=== PATIENT | male | born 1955 | race Caucasian/White ===

== ENCOUNTER 2022-12-16 09:49 | Outpatient (AMB) | payer MEDICARE, SELFPAY ==
--- NOTE | 2022-12-16 09:50 | A.OFFVIS_ITS ---
Intake Vital Signs 12/16/22 09:56 BP 122/72 Blood Pressure Location Lt radial Position Sitting Pulse 66 Pulse Source Pulse Oximeter Pulse Oximetry (%) 99 Oxygen Delivery Method Room Air Intake Visit Reasons: MAT Intake Intake Note: the patient presents for a mat intake Supervisor Felting Required: No Allergies No Known Allergies Allergy (Verified 12/23/22 09:36) Do you need a note to return to daycare/school/sports/work: No MAT Intake Nursing Intake Reason for visit: interested in medication for stimulant use disorder Are you currently using?: Yes What are you taking?: crack cocaine When was your last use?: 1.5 weeks ago How much?: $60 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, delivering newspapers What is your current relationship status?: (3rd , 19 years) Current PCP: Osbaldo Tolentino Date of last visit: 11/11/22 Referral Source: PCP Substance Abuse History Substance Abuse History (includes route, frequency and quantity): Cocaine (crack cocaine, INH, every other day x 5 years, last use 1.5 weeks ago) and Alcohol (1- 3 beers daily, 12 oz., last drink yesterday) Age of first use: Began using crack cocaine 5 years ago, states I started hanging out with the wrong people Social History Domestic Violence concerns: none Children: 41 yo, 38 yo Do you have a support system?: Current mode of transportation?: car Where are you currently residing?: own home, [place] LMP: n/a IV Drug Use Have you ever shared needles?: No Have you ever belonged to a needle exchange program?: No Do you buy needles at a pharmacy?: No Have you ever overdosed?: No Have you ever been hospitalized for an overdose?: No Was Naloxone administered?: No Recovery History Have you had any periods of recovery?: Yes What is your longest time in recovery?: 2 months without alcohol When was the last time you were in recovery?: 25 years ago Have you ever had inpatient treatment for your substance abuse disorder?: No Have you been in an inpatient detoxification program?: No Have you been in an inpatient Rehab/Penitentiary house?: No Have you been in an outpatient Methadone Maintenance program?: No Have you been in an outpatient Suboxone Maintenance program?: No Have you been in an AA/NA support program?: Yes (3 years ago x 3 months) Have you had a Recovery Support Lifeguard?: No Have you had Peer Support?: No Behavioral Health History Do you have a current provider? If so, who?: no diagnosis: none History of other addictive behavior: scratch tickets, has decreased to once per week History of inpatient psychiatric hospitalization? If so, how many? Most Recent? Where?: none History of self harming thoughts?: No History of homicidal or suicidal intentions?: No Medical Conditions Endocarditis?: No Skin Infection: No Seizure related to withdrawal or overdose: No Head or brain injury: No Hepatitis A (if yes, have you been treated?): No Hepatitis B (if yes, have you been treated?): No Hepatitis C (if yes, have you been treated?): No HIV (if yes, have you been treated?): No TB (if yes, have you been treated?): No Other: Yes (HTN (controlled), glaucoma, cataracts (surgery on R eye in 2 weeks)) Do you have any chronic pain conditions?: carpal tunnel Details: surgical hx: hernia operations (1988, 2009) tonisllectomy Legal History History of incarceration: No Currently on parole or probation: No Court mandated programs: No Pending court cases: No DCF involvement: No HPI MAT Intake HPI Details Patient presents for intake and evaluation of stimulant use (crack cocaine) Smoking every other day. Has not smoked in of about a week and a half, as his caught him and told him he needed to stop or their relationship would be over. Patient reporting significant cravings. Denies any sleep disturbance. Reporting some anxiety related mainly to thinking about using. Treatment history: He reports that he had been in treatment previously but does not recall what medication he had been prescribed. Denies any other substance use. Does report having 1 beer daily in the evenings. Denies any history of alcohol use disorder. Denies any history of overdose. RN note with additional details medications reviewed Review of Systems Const Reports as per HPI Physical Exam Vital Signs: Last Vital Signs Pulse 66 12/16/22 09:56 BP 122/72 12/16/22 09:56 Pulse Ox 99 12/16/22 09:56 Oxygen Delivery Method Room Air 12/16/22 09:56 Const General: cooperative and anxious Orientation/consciousness: patient oriented x3 Neuro General: patient oriented x3 Psych Appearance: well kempt Speech and movement: Clear speech present Affect: Anxious affect present Attitude: cooperative Thought process: Circumstantial thought process present Insight: Fair insight present (Psych) Results AMB 14 Panel Urine Drug Screen Urine Marijuana (THC) Negative Last Edit by Jeanette Tarango CMA on 12/16/22 10:16 Urine Cocaine Negative Last Edit by Jeanette Tarango CMA on 12/16/22 10:16 Urine Morphine Negative Last Edit by Jeanette Tarango CMA on 12/16/22 10:16 Urine Methamphetamine Negative Last Edit by Jeanette Tarango CMA on 12/16/22 10:16 Urine Amphetamine Negative Last Edit by Jeanette Tarango CMA on 12/16/22 10:1 6 Urine Benzodiazepine Negative Last Edit by Jeanette Tarango CMA on 12/16/22 10:16 Urine Barbiturates Negative Last Edit by Jeanette Tarango CMA on 12/16/22 10: 16 Urine Methadone Negative Last Edit by Jeanette Tarango CMA on 12/16/22 10:16 Urine Buprenorphine Negative Last Edit by Jeanette Tarango CMA on 12/16/22 10 :16 Urine Tricyclic Antidepressant Negative Last Edit by Jeanette Tarango CMA on 12/16/22 10:16 Urine MDMA Negative Last Edit by Jeanette Tarango CMA on 12/16/22 10:16 Urine Oxycodone Negative Last Edit by Jeanette Tarango CMA on 12/16/22 10:16 Urine Phencyclidine Negative Last Edit by Jeanette Tarango CMA on 12/16/22 10 :16 Urine Propoxyphene Negative Last Edit by Jeanette Tarango CMA on 12/16/22 10: 16 Results Reviewed Results Reviewed: Laboratory Last Values POC Urine Buprenorphine Negative 12/16/22 10:14 POC Urine Morphine Negative 12/16/22 10:14 POC Urine Oxycodone Negative 12/16/22 10:14 POC Urine Methadone Negative 12/16/22 10:14 POC Urine Propoxyphene Negative 12/16/22 10:14 POC Urine Barbiturates Negative 12/16/22 10:14 POC U Tricyclic Antidpr Negative 12/16/22 10:14 POC Urine PCP Negative 12/16/22 10:14 POC Ur Amphetamines Negative 12/16/22 10:14 POC Ur Methamphetamine Negative 12/16/22 10:14 POC Urine MDMA Negative 12/16/22 10:14 POC Ur Benzodiazepine Negative 12/16/22 10:14 POC Urine Cocaine Negative 12/16/22 10:14 POC Ur Marijuana (THC) Negative 12/16/22 10:14 Assessment & Plan Assessment & Plan (1) Cocaine use disorder: Code(s): F14.10 - Cocaine abuse, uncomplicated Plan: * risk reduction discussion * reviewed limited medication options for StUD, although some medications have shown some possible benefit to reduce cravings and overall use, including topomax. patient agreeable to trial * IOP referral sent to * follow up one week Orders: Orders AMB 14 Panel Urine Drug Screen 12/16/22 Z51.81 - Encounter for therapeutic drug level monitoring Medications: New topiramate 25 mg PO DAILY 14 caps 0RF naloxone 4 mg/actuation (Narcan) spray 1 dose into ONE nostril; alternate nostrils w each dose until help arrives 4 mg intranasal Q2M 2 ea 0RF Coding Level of Care Code New Pt Level 4 (89591) Diagnoses Cocaine use disorder F14.10
[2022-12-16 09:56] VITALS: BP 122/72; PULSE 66; O2SAT 99
== END 2022-12-16 10:53 | disposition home or self-care (01) ==
LOC: HO.HCC 09:49
PROVIDERS: PCP Internal Medicine; Visit Provider Nurse Practitioner Psychiatric/Mental Health
DX: F14.10 Cocaine abuse, uncomplicated (principal)
CPT/HCPCS: 99204

== ENCOUNTER → 2022-12-16 09:49 | Outpatient (BNVA) | payer MEDICARE, SELFPAY | PROVIDERS: PCP Internal Medicine; Visit Provider Nurse Practitioner Psychiatric/Mental Health | DX: Z51.81 Encounter for therapeutic drug level monitoring (principal); F14.10 Cocaine abuse, uncomplicated | CPT/HCPCS: 80305; 99202 ==

== ENCOUNTER 2022-12-23 09:30 | Outpatient (AMB) | payer MEDICARE, SELFPAY ==
--- NOTE | 2022-12-23 09:31 | MHC.OFFVIS ---
Intake Vital Signs 12/23/22 09:44 BP 128/74 Blood Pressure Location Lt radial Position Sitting Pulse 71 Pulse Source Pulse Oximeter Pulse Oximetry (%) 95 Oxygen Delivery Method Room Air Intake Visit Reasons: MAT Visit Intake Note: The patient presents for a mat visit Photo Finish Photographer Required: No Allergies No Known Allergies Allergy (Verified 12/23/22 09:36) Do you need a note to return to daycare/school/sports/work: No HPI MAT Visit HPI Details Patient presents for [facility] treatment follow up Started Topomax last week, has found it helpful with cravings Bright affect, encouraged by this Has not heard back from [facility] regarding IOP referral Review of Systems Const Reports as per HPI and Reports no additional complaints Physical Exam Vital Signs: Last Vital Signs Pulse 71 12/23/22 09:44 BP 128/74 12/23/22 09:44 Pulse Ox 95 12/23/22 09:44 Oxygen Delivery Method Room Air 12/23/22 09:44 Const General: cooperative, healthy appearing and no acute distress Nutritional Appearance: well nourished Psych Appearance: well kempt Speech and movement: Clear speech present Affect: normal affect Attitude: cooperative Thought process: Normal thought process present Thought content: Normal thought content present Insight: Fair insight present (Psych) Judgement: Good judgement present (Psych) Results AMB 14 Panel Urine Drug Screen Urine Marijuana (THC) Negative Last Edit by Jeanette Tarango CMA on 12/23/22 09:45 Urine Cocaine Negative Last Edit by Jeanette Tarango CMA on 12/23/22 09:45 Urine Morphine Negative Last Edit by Jeanette Tarango CMA on 12/23/22 09:45 Urine Methamphetamine Negative Last Edit by Jeanette Tarango CMA on 12/23/22 09:45 Urine Amphetamine Negative Last Edit by Jeanette Tarango CMA on 12/23/22 09:45 Urine Benzodiazepine Negative Last Edit by Jeanette Tarango CMA on 12/23/22 09:45 Urine Barbiturates Negative Last Edit by Jeanette Tarango CMA on 12/23/22 09:45 Urine Methadone Negative Last Edit by Jeanette Tarango CMA on 12/23/22 09:45 Urine Buprenorphine Negative Last Edit by Jeanette Tarango CMA on 12/23/22 09:45 Urine Tricyclic Antidepressant Negative Last Edit by Jeanette Tarango CMA on 12/23/22 09:45 Urine MDMA Negative Last Edit by Jeanette Tarango CMA on 12/23/22 09:45 Urine Oxycodone Negative Last Edit by Jeanette Tarango CMA on 12/23/22 09:45 Urine Phencyclidine Negative Last Edit by Jeanette Tarango CMA on 12/23/22 09:45 Urine Propoxyphene Negative Last Edit by Jeanette Tarango CMA on 12/23/22 09:45 Results Reviewed Results Reviewed: Laboratory Last Values POC Urine Buprenorphine Negative 12/23/22 09:36 POC Urine Morphine Negative 12/23/22 09:36 POC Urine Oxycodone Negative 12/23/22 09:36 POC Urine Methadone Negative 12/23/22 09:36 POC Urine Propoxyphene Negative 12/23/22 09:36 POC Urine Barbiturates Negative 12/23/22 09:36 POC U Tricyclic Antidpr Negative 12/23/22 09:36 POC Urine PCP Negative 12/23/22 09:36 POC Ur Amphetamines Negative 12/23/22 09:36 POC Ur Methamphetamine Negative 12/23/22 09:36 POC Urine MDMA Negative 12/23/22 09:36 POC Ur Benzodiazepine Negative 12/23/22 09:36 POC Urine Cocaine Negative 12/23/22 09:36 POC Ur Marijuana (THC) Negative 12/23/22 09:36 Assessment & Plan Assessment & Plan (1) Cocaine use disorder: Code(s): F14.10 - Cocaine abuse, uncomplicated Plan: topomax 25mg QD. risk reduction discussion referral to [facility] ([place] follow [place]) Orders: Orders AMB 14 Panel Urine Drug Screen 12/23/22 Z51.81 - Encounter for therapeutic drug level monitoring Coding Level of Care Code Est Pt Level 3 (06478) Diagnoses Cocaine use disorder F14.10
[2022-12-23 09:44] VITALS: BP 128/74; PULSE 71; O2SAT 95
== END 2022-12-23 10:45 | disposition home or self-care (01) ==
LOC: HO.HCC 09:30
PROVIDERS: PCP Internal Medicine; Visit Provider Nurse Practitioner Psychiatric/Mental Health
DX: F14.10 Cocaine abuse, uncomplicated (principal)
CPT/HCPCS: 99213

== ENCOUNTER → 2022-12-23 09:30 | Outpatient (BNVA) | payer MEDICARE, SELFPAY | PROVIDERS: PCP Internal Medicine; Visit Provider Nurse Practitioner Psychiatric/Mental Health | DX: F14.10 Cocaine abuse, uncomplicated (principal); Z51.81 Encounter for therapeutic drug level monitoring; Z79.899 Other long term (current) drug therapy | CPT/HCPCS: 80305; 99212 ==

== ENCOUNTER 2023-01-06 09:46 | Outpatient (AMB) | payer MEDICARE, SELFPAY ==
--- NOTE | 2023-01-06 09:53 | A.OFFVIS_ITS ---
Intake Vital Signs 01/06/23 10:06 BP 126/74 Blood Pressure Location Lt radial Position Sitting Pulse 51 Pulse Source Pulse Oximeter Pulse Oximetry (%) 99 Oxygen Delivery Method Room Air Intake Visit Reasons: MAT Visit Intake Note: the patient presents for a mat visit Music Composer Required: No Allergies No Known Allergies Allergy (Verified 01/06/23 09:54) Do you need a note to return to daycare/school/sports/work: No HPI MAT Visit HPI Details Patient presents for follow up of [facility] treatment Has been 2 months since his last use--reports feeling overall brighter and calmer. tolerating topomax and feels like it has helped with his cravings [facility] Review of Systems Const Reports as per HPI and Reports no additional complaints Physical Exam Vital Signs: Last Vital Signs Pulse 51 01/06/23 10:06 BP 126/74 01/06/23 10:06 Pulse Ox 99 01/06/23 10:06 Oxygen Delivery Method Room Air 01/06/23 10:06 Const General: cooperative, healthy appearing and no acute distress Nutritional Appearance: well nourished Psych Appearance: well kempt Speech and movement: Clear speech present Affect: normal affect Attitude: cooperative Thought process: Normal thought process present Thought content: Normal thought content present Insight: Fair insight present (Psych) Judgement: Good judgement present (Psych) Assessment & Plan Assessment & Plan (1) Cocaine use disorder: Code(s): F14.10 - Cocaine abuse, uncomplicated Plan: * Relapse prevention discussion * Continue Topamax at current dose * Follow-up 4 weeks--patient to follow-up with Sheree Osullivan for intake Coding Level of Care Code Est Pt Level 3 (19335) Diagnoses Cocaine use disorder F14.10
[2023-01-06 10:06] VITALS: BP 126/74; PULSE 51; O2SAT 99
== END 2023-01-06 10:45 | disposition home or self-care (01) ==
LOC: HO.HCC 09:46
PROVIDERS: PCP Internal Medicine; Visit Provider Nurse Practitioner Psychiatric/Mental Health
DX: F14.20 Cocaine dependence, uncomplicated (principal)
CPT/HCPCS: 99213

== ENCOUNTER → 2023-01-06 09:46 | Outpatient (BNVA) | payer MEDICARE, SELFPAY | PROVIDERS: PCP Internal Medicine; Visit Provider Nurse Practitioner Psychiatric/Mental Health | DX: F14.10 Cocaine abuse, uncomplicated (principal); Z51.81 Encounter for therapeutic drug level monitoring; Z79.899 Other long term (current) drug therapy | CPT/HCPCS: 99212 ==

== ENCOUNTER 2023-02-03 09:11 | Outpatient (AMB) | payer MEDICARE, SELFPAY ==
--- NOTE | 2023-02-03 09:12 | MHC.OFFVIS ---
Intake Vital Signs 02/03/23 09:23 BP 126/82 Blood Pressure Location Lt radial Position Sitting Pulse 57 Pulse Source Pulse Oximeter Pulse Oximetry (%) 99 Oxygen Delivery Method Room Air Intake Visit Reasons: MAT Visit Intake Note: The patient presents for a mat visit Supervisor Sheet Manufacturing Required: No Allergies No Known Allergies Allergy (Verified 02/03/23 09:15) Do you need a note to return to daycare/school/sports/work: No HPI MAT Visit HPI Details Patient presents for follow up Currently prescribed Topomax for stimulant use disorder Still no cocaine use-9 weeks Feeling positive--saw the person he usually buys from recently, but did not feel any compulsion to buy anything. No questions or concerns Review of Systems Const Reports as per HPI and Reports no additional complaints Physical Exam Vital Signs: Last Vital Signs Pulse 57 02/03/23 09:23 BP 126/82 02/03/23 09:23 Pulse Ox 99 02/03/23 09:23 Oxygen Delivery Method Room Air 02/03/23 09:23 Const General: cooperative, healthy appearing and no acute distress Nutritional Appearance: well nourished Psych Appearance: well kempt Speech and movement: Clear speech present Affect: normal affect Attitude: cooperative Thought process: Normal thought process present Thought content: Normal thought content present Insight: Fair insight present (Psych) Judgement: Good judgement present (Psych) Results AMB 14 Panel Urine Drug Screen Urine Marijuana (THC) Negative Last Edit by Jenaette Tarango CMA on 02/03/23 09:25 Urine Cocaine Negative Last Edit by Jeanette Tarango CMA on 02/03/23 09:25 Urine Morphine Negative Last Edit by Jeanette Tarango CMA on 02/03/23 09:25 Urine Methamphetamine Negative Last Edit by Jeanette Tarango CMA on 02/03/23 09:25 Urine Amphetamine Negative Last Edit by Jeanette Tarango CMA on 02/03/23 09:25 Urine Benzodiazepine Negative Last Edit by Jeanette Tarango CMA on 02/03/23 09:25 Urine Barbiturates Negative Last Edit by Jeanette Tarango CMA on 02/03/23 09:25 Urine Methadone Negative Last Edit by Jeanette Tarango CMA on 02/03/23 09:25 Urine Buprenorphine Negative Last Edit by Jeanette Tarango CMA on 02/03/23 09:25 Urine Tricyclic Antidepressant Negative Last Edit by Jeanette Tarango CMA on 02/03/23 09:25 Urine MDMA Negative Last Edit by Jeanette Tarango CMA on 02/03/23 09:25 Urine Oxycodone Negative Last Edit by Jeanette Tarango CMA on 02/03/23 09:25 Urine Phencyclidine Negative Last Edit by Jeanette Tarango CMA on 02/03/23 09:25 Urine Propoxyphene Negative Last Edit by Jeanette Tarango CMA on 02/03/23 09:25 Results Reviewed Results Reviewed: Laboratory Last Values POC Urine Buprenorphine Negative 02/03/23 09:16 POC Urine Morphine Negative 02/03/23 09:16 POC Urine Oxycodone Negative 02/03/23 09:16 POC Urine Methadone Negative 02/03/23 09:16 POC Urine Propoxyphene Negative 02/03/23 09:16 POC Urine Barbiturates Negative 02/03/23 09:16 POC U Tricyclic Antidpr Negative 02/03/23 09:16 POC Urine PCP Negative 02/03/23 09:16 POC Ur Amphetamines Negative 02/03/23 09:16 POC Ur Methamphetamine Negative 02/03/23 09:16 POC Urine MDMA Negative 02/03/23 09:16 POC Ur Benzodiazepine Negative 02/03/23 09:16 POC Urine Cocaine Negative 02/03/23 09:16 POC Ur Marijuana (THC) Negative 02/03/23 09:16 Assessment & Plan Assessment & Plan (1) Cocaine use disorder: Code(s): F14.10 - Cocaine abuse, uncomplicated Plan: continue topomax as prescribed follow up 3 weeks Orders: Orders AMB 14 Panel Urine Drug Screen Today Z51.81 - Encounter for therapeutic drug level monitoring Coding Level of Care Code Est Pt Level 3 (27201) Diagnoses Cocaine use disorder F14.10
[2023-02-03 09:23] VITALS: BP 126/82; PULSE 57; O2SAT 99
== END 2023-02-03 09:42 | disposition home or self-care (01) ==
LOC: HO.HCC 09:11
PROVIDERS: PCP Internal Medicine; Visit Provider Nurse Practitioner Psychiatric/Mental Health
DX: F14.20 Cocaine dependence, uncomplicated (principal); Z51.81 Encounter for therapeutic drug level monitoring
CPT/HCPCS: 99213

== ENCOUNTER → 2023-02-03 09:11 | Outpatient (BNVA) | payer MEDICARE, SELFPAY | PROVIDERS: PCP Internal Medicine; Visit Provider Nurse Practitioner Psychiatric/Mental Health | DX: Z51.81 Encounter for therapeutic drug level monitoring (principal); F14.10 Cocaine abuse, uncomplicated | CPT/HCPCS: 80305; 99212 ==

== ENCOUNTER 2023-03-10 09:43 | Outpatient (AMB) | payer MEDICARE, SELFPAY ==
--- NOTE | 2023-03-10 09:44 | A.OFFVIS_ITS ---
Intake Vital Signs 03/10/23 09:50 BP 126/78 Blood Pressure Location Lt radial Position Sitting Pulse 66 Pulse Source Pulse Oximeter Pulse Oximetry (%) 99 Oxygen Delivery Method Room Air Intake Visit Reasons: MAT Visit Intake Note: The patient presents for a mat visit Director Of Placement Required: No Allergies No Known Allergies Allergy (Verified 03/10/23 09:47) Do you need a note to return to daycare/school/sports/work: No HPI MAT Visit HPI Details Patient presents for [facility] treatment follow up Currently prescribed Topomax for cocaine use--requesting to increase dose as he has been having some thoughts of using. Identifies situation with his as triggering--able to process during visit Has been sick for 2 weeks --unsure with what--on abx Review of Systems Const Reports as per HPI and Reports difficulty sleeping (due to illness) Physical Exam Vital Signs: Last Vital Signs Pulse 66 03/10/23 09:50 BP 126/78 03/10/23 09:50 Pulse Ox 99 03/10/23 09:50 Oxygen Delivery Method Room Air 03/10/23 09:50 Const General: cooperative, healthy appearing and no acute distress Nutritional Appearance: well nourished Psych Appearance: well kempt Speech and movement: Clear speech present Affect: normal affect Attitude: cooperative Thought process: Normal thought process present Thought content: Normal thought content present Insight: Fair insight present (Psych) Judgement: Good judgement present (Psych) Assessment & Plan Assessment & Plan (1) Cocaine use disorder: Code(s): F14.10 - Cocaine abuse, uncomplicated Plan: * continue topomax--increase dose to 2 tabs daily * follow up 4 weeks Coding Level of Care Code Est Pt Level 3 (80474) Diagnoses Cocaine use disorder F14.10
[2023-03-10 09:50] VITALS: BP 126/78; PULSE 66; O2SAT 99
== END 2023-03-10 10:23 | disposition home or self-care (01) ==
PROVIDERS: PCP Internal Medicine; Visit Provider Nurse Practitioner Psychiatric/Mental Health
DX: F14.10 Cocaine abuse, uncomplicated (principal)
CPT/HCPCS: 99213

== ENCOUNTER → 2023-03-10 09:43 | Outpatient (BNVA) | payer MEDICARE, SELFPAY | PROVIDERS: PCP Internal Medicine; Visit Provider Nurse Practitioner Psychiatric/Mental Health | DX: F14.10 Cocaine abuse, uncomplicated (principal) | CPT/HCPCS: 99212 ==

== ENCOUNTER 2023-04-08 09:29 | Outpatient (AMB) | payer MEDICARE, SELFPAY ==
--- NOTE | 2023-04-08 09:30 | A.OFFVIS_ITS ---
Intake Vital Signs 04/08/23 09:34 BP 108/70 Blood Pressure Location Lt radial Position Sitting Pulse 60 Pulse Source Pulse Oximeter Pulse Oximetry (%) 99 Oxygen Delivery Method Room Air Intake Visit Reasons: MAT Visit Intake Note: the patient is here for a mat visit Separating Machine Operator Required: No Allergies No Known Allergies Allergy (Verified 04/08/23 09:35) HPI MAT Visit HPI Details Pt presents today for [facility] treatment and follow up Still running 2.5-3 miles every morning. Reports last month has been good for him, states he has been taking his topamax daily Everything's going good Pt cannot remember last time he last used cocaine. Denies any concerns regarding recovery at this time. Having his family over for Thanksgiving, and excited for this. Review of Systems Const Reports as per HPI Physical Exam Vital Signs: Last Vital Signs Pulse 60 04/08/23 09:34 BP 108/70 04/08/23 09:34 Pulse Ox 99 04/08/23 09:34 Oxygen Delivery Method Room Air 04/08/23 09:34 Const General: cooperative, healthy appearing and no acute distress Resp Effort & Inspection: normal respiratory effort Skin General skin exam: no rashes or lesions noted Psych Appearance: grossly normal Assessment & Plan Assessment & Plan (1) Cocaine use disorder: Code(s): F14.10 - Cocaine abuse, uncomplicated Plan: Continue taking topamax as prescribed. Follow up in 4 weeks Coding Level of Care Code Est Pt Level 3 (09627) Diagnoses Cocaine use disorder F14.10
[2023-04-08 09:34] VITALS: BP 108/70; PULSE 60; O2SAT 99
== END 2023-04-08 10:17 | disposition home or self-care (01) ==
PROVIDERS: PCP Internal Medicine; Visit Provider Nurse Practitioner Family
DX: F14.10 Cocaine abuse, uncomplicated (principal)
CPT/HCPCS: 99213

== ENCOUNTER → 2023-04-08 09:29 | Outpatient (BNVA) | payer MEDICARE, SELFPAY | PROVIDERS: PCP Internal Medicine; Visit Provider Nurse Practitioner Family | DX: F14.10 Cocaine abuse, uncomplicated (principal) | CPT/HCPCS: 99212 ==

== ENCOUNTER 2023-05-06 10:02 | Outpatient (AMB) | payer MEDICARE, SELFPAY ==
--- NOTE | 2023-05-06 10:03 | MHC.AM.SUB ---
Intake Vital Signs 05/06/23 10:06 BP 130/74 Blood Pressure Location Lt radial Position Sitting Pulse 68 Pulse Source Pulse Oximeter Pulse Oximetry (%) 98 Oxygen Delivery Method Room Air Intake Visit Reasons: mat visit Intake Note: the patient is here for a mat visit Guest Experience Specialist Required: No Allergies No Known Allergies Allergy (Verified 05/06/23 10:07) Do you need a note to return to daycare/school/sports/work: No HPI mat visit HPI Details Patient presents for [facility] treatment and follow up Reports recovery is going well Has not used since last visit Denies any cravings Feels the topamax bid is working well for him, takes in morning and at night Denies side effects Review of Systems Const Reports as per HPI Physical Exam Vital Signs: Last Vital Signs Pulse 68 05/06/23 10:06 BP 130/74 05/06/23 10:06 Pulse Ox 98 05/06/23 10:06 Oxygen Delivery Method Room Air 05/06/23 10:06 Const General: cooperative and healthy appearing Resp Effort & Inspection: normal respiratory effort and able to speak in complete sentences Skin General skin exam: no rashes or lesions noted Psych Appearance: grossly normal Mental Status: mental status grossly normal Speech and movement: Normal speech and movement present Affect: normal affect Attitude: cooperative Assessment & Plan Assessment & Plan (1) Cocaine use disorder: Code(s): F14.10 - Cocaine abuse, uncomplicated Plan: Refill for topamax sent to pharmacy- continue at same dose Follow up in 4 weeks Reviewed to call [facility] with any questions or concerns Medications: Refilled topiramate 25 mg PO BID 60 caps 0RF Coding Level of Care Code Est Pt Level 3 (76842) Diagnoses Cocaine use disorder F14.10
[2023-05-06 10:06] VITALS: BP 130/74; PULSE 68; O2SAT 98
== END 2023-05-06 11:01 | disposition home or self-care (01) ==
PROVIDERS: PCP Internal Medicine; Visit Provider Nurse Practitioner Family
DX: F14.10 Cocaine abuse, uncomplicated (principal)
CPT/HCPCS: 99213

== ENCOUNTER → 2023-05-06 10:02 | Outpatient (BNVA) | payer MEDICARE, SELFPAY | PROVIDERS: PCP Internal Medicine; Visit Provider Nurse Practitioner Family | DX: F14.10 Cocaine abuse, uncomplicated (principal) | CPT/HCPCS: 99212 ==

== ENCOUNTER 2023-06-10 10:20 | Outpatient (AMB) | payer MEDICARE, SELFPAY ==
--- NOTE | 2023-06-10 10:24 | A.OFFVISCC_ITS ---
Intake Vital Signs 06/10/23 10:30 BP 136/78 Blood Pressure Location Lt radial Position Sitting Pulse 70 Pulse Source Pulse Oximeter Pulse Oximetry (%) 93 Oxygen Delivery Method Room Air Intake Visit Reasons: mat visit Intake Note: the patient presents for a mat visit Sas Programmer Remote Required: No Allergies No Known Allergies Allergy (Verified 06/10/23 10:30) Do you need a note to return to daycare/school/sports/work: No HPI mat visit HPI Details Pt presents to the clinic for [facility] treatment and follow up He reports he is doing well in his recovery, has not used cocaine in months He reports occasional thoughts of crack but that's as far as it goes He reports his is occasionally accusatory implying he is still using which bothers him at times, t/w encouraged him to have a conversation with his about it. He is still taking his topamax BID, denies concerns for side effects He is still running daily, using spikes on his running shoes for fall prevention Review of Systems Const Reports as per HPI Physical Exam Vital Signs: Last Vital Signs Pulse 70 06/10/23 10:30 BP 136/78 06/10/23 10:30 Pulse Ox 93 06/10/23 10:30 Oxygen Delivery Method Room Air 06/10/23 10:30 Const General: cooperative, healthy appearing and no acute distress Resp Effort & Inspection: normal respiratory effort and able to speak in complete sentences Psych Appearance: grossly normal Mental Status: mental status grossly normal Thought process: Normal thought process present Thought content: Normal thought content present Assessment & Plan Assessment & Plan (1) Cocaine use disorder: Code(s): F14.10 - Cocaine abuse, uncomplicated Plan -Topamax refill sent to pharmacy -Relapse prevention discussed -Follow up 1 month Medications: Refilled topiramate 25 mg PO BID 60 caps 1RF Coding Level of Care Code Est Pt Level 3 (31511) Diagnoses Cocaine use disorder F14.10
[2023-06-10 10:30] VITALS: BP 136/78; PULSE 70; O2SAT 93
== END 2023-06-10 10:40 | disposition home or self-care (01) ==
PROVIDERS: PCP Internal Medicine; Visit Provider Nurse Practitioner Family
DX: F14.10 Cocaine abuse, uncomplicated (principal)
CPT/HCPCS: 99213

== ENCOUNTER → 2023-06-10 10:20 | Outpatient (BNVA) | payer MEDICARE, SELFPAY | PROVIDERS: PCP Internal Medicine; Visit Provider Nurse Practitioner Family | DX: F14.10 Cocaine abuse, uncomplicated (principal) | CPT/HCPCS: 99212 ==

== ENCOUNTER 2023-07-08 10:03 | Outpatient (AMB) | payer MEDICARE, SELFPAY ==
[2023-07-08 10:23] VITALS: BP 120/78; PULSE 52; O2SAT 99
--- NOTE | 2023-07-08 10:23 | A.OFFVISCC_ITS ---
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 Allergies No Known Allergies Allergy (Verified 07/08/23 10:24) Do you need a note to return to daycare/school/sports/work: No HPI mat visit HPI Details Patient presents for MAT visit He reports he continues to run in the morning for exercise and enjoyment Feels good about the topamax Denies side effects Denies cravings for cocaine Review of Systems Const Reports as per HPI Physical Exam Vital Signs: Last Vital Signs Pulse 52 07/08/23 10:23 BP 120/78 07/08/23 10:23 Pulse Ox 99 07/08/23 10:23 Oxygen Delivery Method Room Air 07/08/23 10:23 Const General: cooperative Nutritional Appearance: average body habitus Resp Effort & Inspection: normal respiratory effort Psych Appearance: grossly normal Mental Status: mental status grossly normal Speech and movement: Normal speech and movement present Affect: normal affect Attitude: cooperative Assessment & Plan Assessment & Plan (1) Cocaine use disorder: Code(s): F14.10 - Cocaine abuse, uncomplicated Plan: -Continue topamax, no refill needed at this time -Follow up 6 weeks Coding Level of Care Code Est Pt Level 3 (01168) Diagnoses Cocaine use disorder F14.10
== END 2023-07-08 10:38 | disposition home or self-care (01) ==
PROVIDERS: PCP Internal Medicine; Visit Provider Nurse Practitioner Family
DX: F14.10 Cocaine abuse, uncomplicated (principal)
CPT/HCPCS: 99213

== ENCOUNTER → 2023-07-08 10:03 | Outpatient (BNVA) | payer MEDICARE, SELFPAY | PROVIDERS: PCP Internal Medicine; Visit Provider Nurse Practitioner Family | DX: F14.10 Cocaine abuse, uncomplicated (principal) | CPT/HCPCS: 99212 ==

== ENCOUNTER 2023-08-19 10:01 | Outpatient (AMB) | payer MEDICARE, SELFPAY ==
--- NOTE | 2023-08-19 10:03 | A.OFFVISCC_ITS ---
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 Allergies No Known Allergies Allergy (Verified 08/19/23 10:11) Do you need a note to return to daycare/school/sports/work: No HPI mat visit HPI Details Patient presents for MAT appointment Reports things have been going well Still running every morning Had a good and quiet Easter with his family Denies concerns for recovery, no substance use Taking topamax BID Review of Systems Const Reports as per HPI Physical Exam Vital Signs: Last Vital Signs Pulse 43 L 08/19/23 10:10 BP 128/70 08/19/23 10:10 Pulse Ox 99 08/19/23 10:10 Oxygen Delivery Method Room Air 08/19/23 10:10 Const General: cooperative and no acute distress Resp Effort & Inspection: normal respiratory effort Psych Appearance: grossly normal Mental Status: mental status grossly normal Speech and movement: Normal speech and movement present Affect: normal affect Attitude: cooperative Results AMB 14 Panel Urine Drug Screen Urine Marijuana (THC) Negative Last Edit by Jeanette Tarango CMA on 08/19/23 10:24 Urine Cocaine Negative Last Edit by Jeanette Tarango CMA on 08/19/23 10:24 Urine Morphine Negative Last Edit by Jeanette Tarango CMA on 08/19/23 10:24 Urine Methamphetamine Negative Last Edit by Jeanette Tarango CMA on 08/19/23 10:24 Urine Amphetamine Negative Last Edit by Jeanette Tarango CMA on 08/19/23 10:2 4 Urine Benzodiazepine Negative Last Edit by Jeanette Tarango CMA on 08/19/23 10:24 Urine Barbiturates Negative Last Edit by Jeanette Tarango CMA on 08/19/23 10: 24 Urine Methadone Negative Last Edit by Jeanette Tarango CMA on 08/19/23 10:24 Urine Buprenorphine Negative Last Edit by Jeanette Tarango CMA on 08/19/23 10 :24 Urine Tricyclic Antidepressant Negative Last Edit by Jeanette Tarango CMA on 08/19/23 10:24 Urine MDMA Negative Last Edit by Jeanette Tarango CMA on 08/19/23 10:24 Urine Oxycodone Negative Last Edit by Jeanette Tarango CMA on 08/19/23 10:24 Urine Phencyclidine Negative Last Edit by Jeanette Tarango CMA on 08/19/23 10 :24 Urine Propoxyphene Negative Last Edit by Jeanette Tarango CMA on 08/19/23 10: 24 Results Reviewed Results Reviewed: Laboratory Last Values POC Urine Buprenorphine Negative 08/19/23 10:11 POC Urine Morphine Negative 08/19/23 10:11 POC Urine Oxycodone Negative 08/19/23 10:11 POC Urine Methadone Negative 08/19/23 10:11 POC Urine Propoxyphene Negative 08/19/23 10:11 POC Urine Barbiturates Negative 08/19/23 10:11 POC U Tricyclic Antidpr Negative 08/19/23 10:11 POC Urine PCP Negative 08/19/23 10:11 POC Ur Amphetamines Negative 08/19/23 10:11 POC Ur Methamphetamine Negative 08/19/23 10:11 POC Urine MDMA Negative 08/19/23 10:11 POC Ur Benzodiazepine Negative 08/19/23 10:11 POC Urine Cocaine Negative 08/19/23 10:11 POC Ur Marijuana (THC) Negative 08/19/23 10:11 Assessment & Plan Assessment & Plan (1) Cocaine use disorder: Code(s): F14.10 - Cocaine abuse, uncomplicated Plan: -Refill sent for topamax -Follow up 6 weeks Orders: Orders AMB 14 Panel Urine Drug Screen Today Z51.81 - Encounter for therapeutic drug level monitoring Medications: Refilled topiramate 25 mg PO BID 180 caps 0RF Coding Level of Care Code Est Pt Level 3 (21665) Diagnoses Cocaine use disorder F14.10
[2023-08-19 10:10] VITALS: BP 128/70; PULSE 43; O2SAT 99
== END 2023-08-19 10:24 | disposition home or self-care (01) ==
PROVIDERS: PCP Internal Medicine; Visit Provider Nurse Practitioner Family
DX: F14.10 Cocaine abuse, uncomplicated (principal); Z51.81 Encounter for therapeutic drug level monitoring
CPT/HCPCS: 99213

== ENCOUNTER → 2023-08-19 10:01 | Outpatient (BNVA) | payer MEDICARE, SELFPAY | PROVIDERS: PCP Internal Medicine; Visit Provider Nurse Practitioner Family | DX: F14.10 Cocaine abuse, uncomplicated (principal) | CPT/HCPCS: 80305; 99212 ==

== ENCOUNTER 2023-10-17 09:05 | Outpatient (AMB) | payer MEDICARE, SELFPAY ==
[2023-10-17 09:13] VITALS: BP 130/88; PULSE 51; O2SAT 100
--- NOTE | 2023-10-17 09:13 | MHC.AM.SUB ---
Vital Signs 10/17/23 09:13 BP 130/88 Blood Pressure Location Rt brachial Position Sitting Pulse 51 Pulse Source Pulse Oximeter Pulse Oximetry (%) 100 Oxygen Delivery Method Room Air Intake Visit Reasons: MAT visit Allergies No Known Allergies Allergy (Verified 08/19/23 10:11) HPI HPI MAT visit: Details: Patient presents for MAT visit Has been in recovery for 8 months now Doing well, denies cravings, states medication is working well for him Has been keeping busy running with his dog and gardening No concerns today HPI Comments Details: Patient presents for MAT visit Review of Systems Const Reports as per HPI Physical Exam Vital Signs: Last Vital Signs Pulse 51 10/17/23 09:13 BP 130/88 10/17/23 09:13 Pulse Ox 100 10/17/23 09:13 Oxygen Delivery Method Room Air 10/17/23 09:13 Const General: cooperative and no acute distress Resp Effort & Inspection: normal respiratory effort and able to speak in complete sentences Psych Appearance: grossly normal Mental Status: mental status grossly normal Speech and movement: Normal speech and movement present Affect: normal affect Attitude: cooperative Thought process: Normal thought process present Assessment & Plan Assessment & Plan (1) Cocaine use disorder: Code(s): F14.10 - Cocaine abuse, uncomplicated Category: Medical Plan: -No refill indicated at this time -Follow up 8 weeks
== END 2023-10-17 09:32 | disposition home or self-care (01) ==
PROVIDERS: PCP Internal Medicine; Visit Provider Nurse Practitioner Family
DX: F14.10 Cocaine abuse, uncomplicated (principal)
CPT/HCPCS: 99213

== ENCOUNTER → 2023-10-17 09:05 | Outpatient (BNVA) | payer MEDICARE, SELFPAY | PROVIDERS: PCP Internal Medicine; Visit Provider Nurse Practitioner Family | DX: F14.20 Cocaine dependence, uncomplicated (principal) | CPT/HCPCS: 99212 ==

== ENCOUNTER 2023-12-15 13:39 | Outpatient (AMB) | payer MEDICARE, SELFPAY ==
--- NOTE | 2023-12-16 17:39 | A.OFFVISCC_ITS ---
Intake Visit Reasons: MAT visit Allergies No Known Allergies Allergy (Verified 08/19/23 10:11) HPI HPI MAT visit: Details: Pt presents for StUD treatment follow up Currently being prescribed topomax 25mg BID Denies any side effects related to medication continues to abstain from cocaine use bright affect [facility] Medical History (Updated 12/16/23 @ 17:40 by Shellie Granados CNP) Cocaine use disorder Review of Systems Const Reports as per HPI and Reports no additional complaints Physical Exam Const General: cooperative and no acute distress Psych Appearance: grossly normal Mental Status: mental status grossly normal Speech and movement: Normal speech and movement present Affect: normal affect Attitude: cooperative Thought process: Normal thought process present Assessment & Plan Assessment & Plan (1) Cocaine use disorder, moderate, in early remission, dependence: Code(s): F14.21 - Cocaine dependence, in remission Category: Medical Plan: * continue topomax * relapse prevention discussion * follow up 6 weeks Medications: Refilled topiramate 25 mg PO BID 60 caps 2RF
== END 2023-12-15 13:44 | disposition home or self-care (01) ==
LOC: HO.HCC 13:39
PROVIDERS: PCP Internal Medicine; Visit Provider Nurse Practitioner Psychiatric/Mental Health
DX: F14.21 Cocaine dependence, in remission (principal)
CPT/HCPCS: 99213

== ENCOUNTER → 2023-12-15 13:39 | Outpatient (BNVA) | payer MEDICARE, SELFPAY | PROVIDERS: PCP Internal Medicine; Visit Provider Nurse Practitioner Psychiatric/Mental Health | DX: F14.21 Cocaine dependence, in remission (principal) | CPT/HCPCS: 99212 ==

== ENCOUNTER 2023-12-23 11:04 | Outpatient (AMB) | payer MEDICARE, SELFPAY ==
--- NOTE | 2023-12-23 11:48 | A.OFFVISCC_ITS ---
Intake Visit Reasons: mat Allergies No Known Allergies Allergy (Verified 08/19/23 10:11) HPI HPI mat: Details: Patient presents as walk in for follow up reports recurrence of crack cocaine use over the weekend states he found an old phone number and called and had cocaine delivered to his home he also states his found him smoking and is now very upset with him Denies any additional use aside from this day Requesting to increase topomax, also requesting information on groups [facility] Medical History (Updated 12/16/23 @ 17:40 by Shellie Granados CNP) Cocaine use disorder Review of Systems Const Reports as per HPI Physical Exam Const General: cooperative, healthy appearing, anxious and well groomed Nutritional Appearance: average body habitus Orientation/consciousness: patient oriented x3 Limitations: no limitations Neuro General: patient oriented x3 Assessment & Plan Assessment & Plan (1) Cocaine use disorder, moderate, in early remission, dependence: Code(s): F14.21 - Cocaine dependence, in remission Category: Medical Plan: * advised to increase topomax to 2 tabs in AM and one tab in the evening * provided information for IOP programs * follow up Friday via telehealth 8:30am
== END 2023-12-23 12:05 | disposition home or self-care (01) ==
PROVIDERS: PCP Internal Medicine; Visit Provider Nurse Practitioner Psychiatric/Mental Health
DX: F14.21 Cocaine dependence, in remission (principal)
CPT/HCPCS: 99214

== ENCOUNTER → 2023-12-23 11:04 | Outpatient (BNVA) | payer MEDICARE, SELFPAY | PROVIDERS: PCP Internal Medicine; Visit Provider Nurse Practitioner Psychiatric/Mental Health | DX: F14.21 Cocaine dependence, in remission (principal); Z79.899 Other long term (current) drug therapy | CPT/HCPCS: 99212 ==

== ENCOUNTER 2024-03-05 10:06 | Outpatient (AMB) | payer MEDICARE, SELFPAY ==
--- NOTE | 2024-03-05 10:24 | A.OFFVISCC_ITS ---
Vital Signs 03/05/24 10:29 BP 130/80 Blood Pressure Location Rt radial Pulse 75 Intake Visit Reasons: MAT visit Allergies No Known Allergies Allergy (Verified 08/19/23 10:11) HPI HPI MAT visit: Details: Patient presents for follow up cocaine use disorder pacemaker placed last month pulse was down to 33 started at [facility]--11 weeks in treatment no more alcohol since jan 27 one episode of crack use AA meetings --m&m group [facility] Medical History (Updated 12/16/23 @ 17:40 by Shellie Granados CNP) Cocaine use disorder Review of Systems Const Reports as per HPI and Reports no additional complaints Physical Exam Vital Signs: Last Vital Signs Pulse 75 03/05/24 10:29 BP 130/80 03/05/24 10:29 Const General: cooperative, comfortable and no acute distress Nutritional Appearance: average body habitus Assessment & Plan Assessment & Plan (1) Cocaine use disorder, moderate, in early remission, dependence: Code(s): F14.21 - Cocaine dependence, in remission Category: Medical Plan: * continue topomax * follow up 4 weeks * meet with RC in office
[2024-03-05 10:29] VITALS: BP 130/80; PULSE 75
== END 2024-03-05 14:30 | disposition home or self-care (01) ==
PROVIDERS: PCP Internal Medicine; Visit Provider Nurse Practitioner Psychiatric/Mental Health
DX: F14.21 Cocaine dependence, in remission (principal)
CPT/HCPCS: 99213

== ENCOUNTER → 2024-03-05 10:06 | Outpatient (BNVA) | payer MEDICARE, SELFPAY | PROVIDERS: PCP Internal Medicine; Visit Provider Nurse Practitioner Psychiatric/Mental Health | DX: F14.21 Cocaine dependence, in remission (principal); Z79.899 Other long term (current) drug therapy | CPT/HCPCS: 99212 ==

== ENCOUNTER 2024-04-02 09:31 | Outpatient (AMB) | payer MEDICARE, SELFPAY ==
--- NOTE | 2024-04-02 09:31 | A.OFFVISCC_ITS ---
Intake Visit Reasons: MAT visit Allergies No Known Allergies Allergy (Verified 08/19/23 10:11) HPI HPI MAT visit: Details: Patient presents for follow up for StUD Currently prescribed Topirimate 50mg in AM and 25mg in evening Feels medication has been helpful with cravings 1.5 months since last crack cocaine use 3 months since last alcohol use Completed [facility]--feeling very positive and supported has been attending AA meetings on the days he usually attended IOP Review of Systems Const Reports as per HPI and Reports no additional complaints Physical Exam Const General: cooperative, healthy appearing and well groomed Nutritional Appearance: average body habitus Orientation/consciousness: patient oriented x3 Limitations: no limitations Neuro General: patient oriented x3 Assessment & Plan Assessment & Plan (1) Cocaine use disorder, moderate, in early remission, dependence: Code(s): F14.21 - Cocaine dependence, in remission Category: Medical Plan: * relapse prevention discussion * refilled medication * follow up one month Medications: Refilled topiramate 25 mg orally take 2 caps in the morning and one cap in the evening; 90 caps 2RF PFSH Medical History (Updated 12/16/23 @ 17:40 by Shellie Granados CNP) Cocaine use disorder
== END 2024-04-02 11:39 | disposition home or self-care (01) ==
LOC: HO.HCC 09:31
PROVIDERS: PCP Internal Medicine; Visit Provider Nurse Practitioner Psychiatric/Mental Health
DX: F14.21 Cocaine dependence, in remission (principal)
CPT/HCPCS: 99213

== ENCOUNTER → 2024-04-02 09:31 | Outpatient (BNVA) | payer MEDICARE, SELFPAY | PROVIDERS: PCP Internal Medicine; Visit Provider Nurse Practitioner Psychiatric/Mental Health | DX: F14.21 Cocaine dependence, in remission (principal) | CPT/HCPCS: 99212 ==

== ENCOUNTER 2024-04-30 11:21 | Outpatient (REF) | payer MEDICARE, SELFPAY ==
[2024-04-30 14:01] LABS: Alanine Aminotransferase 23 U/L (0-40); Albumin Level 4.3 g/dL (3.5-5.0); Alkaline Phosphatase 95 U/L (39-117); Anion Gap 8 (12-20); Aspartate Amino Transferase 25 U/L (5-37); Bilirubin Total 0.9 mg/dL (0.0-1.0); Blood Urea Nitrogen 13 mg/dL (9-16); Calcium 9.6 mg/dL (8.4-10.2); Carbon Dioxide 25 mmol/L (22-29); Chloride 111 mmol/L (96-108); Estimated Glomerular Filt Rate > 60; Glucose Random 90 mg/dL (60-115); Potassium 4.2 mmol/L (3.3-5.1); Sodium 140 mmol/L (135-145); Total Protein 6.9 g/dL (6.5-8.0)
[2024-05-01 08:52] LABS: HBS Num1 0.41 mIU/mL (0-7.99); HBc Num1 0.08 S/CO (0.00-0.79); HBsAGNum1 0.45 S/CO (0.00-0.99); Hepatitis A Antibody IgM 0.16 Index (0-0.79); Hepatitis B Core Antibody Nonreactive (Nonreactive); Hepatitis B Surface Antigen Negative (Negative); ~HepC Num1 0.13 S/CO (0.00-0.79); ~Hepatitis A Antibody IgM Nonreactive (Nonreactive); ~Hepatitis B Surface Antibody NONREACTIVE (Nonreactive); ~Hepatitis C Antibody Nonreactive (Nonreactive)
== END 2024-04-30 11:22 | disposition home or self-care (01) ==
LOC: HO.LAB 11:21
PROVIDERS: PCP Internal Medicine; Visit Provider Nurse Practitioner Psychiatric/Mental Health
DX: Z79.899 Other long term (current) drug therapy (principal); F14.21 Cocaine dependence, in remission; Z11.59 Encounter for screening for other viral diseases
CPT/HCPCS: 36415; 80053; 86704; 86706; 86709; 86803; 87340; 99212

== ENCOUNTER 2024-04-30 11:21 | Outpatient (AMB) | payer MEDICARE, SELFPAY ==
--- NOTE | 2024-04-30 11:53 | MHC.AM.SUB ---
Intake Visit Reasons: MAT visit Allergies No Known Allergies Allergy (Verified 08/19/23 10:11) HPI HPI MAT visit: Details: Patient presents for StUD follow up Currently prescribed Topomax 25mg 2 tabs in AM and 1 tab in evening Has been noting an increase in cravings Completed [facility] last month Has been attending meeting during the day and evenings Discussed how change in structure and support of day may be contributing to current feelings Review of Systems Const Reports as per HPI and Reports no additional complaints Physical Exam Const General: cooperative and tired appearing Nutritional Appearance: average body habitus Orientation/consciousness: patient oriented x3 Limitations: no limitations Neuro General: patient oriented x3 Psych Speech and movement: Clear speech present Affect: Blunted affect present Attitude: cooperative Thought process: Normal thought process present Assessment & Plan Assessment & Plan (1) Cocaine use disorder, moderate, in early remission, dependence: Code(s): F14.21 - Cocaine dependence, in remission Category: Medical Plan: increase topomax labs ordred follow up 2 weeks Orders: Orders Comprehensive Met. Panel 04/30/24 Z79.899 - Other half-way (current) drug therapy Hepatitis A,B,C Profile 04/30/24 Z79.899 - Other half-way (current) drug therapy [facility] Medical History (Updated 12/16/23 @ 17:40 by Shellie Granados CNP) Cocaine use disorder
== END 2024-04-30 15:35 | disposition home or self-care (01) ==
PROVIDERS: PCP Internal Medicine; Visit Provider Nurse Practitioner Psychiatric/Mental Health
DX: F14.21 Cocaine dependence, in remission (principal)
CPT/HCPCS: 99214

== ENCOUNTER 2024-05-21 09:38 | Outpatient (AMB) | payer MEDICARE, SELFPAY ==
[2024-05-21 09:44] VITALS: BP 100/60; PULSE 65; RESP 19; O2SAT 96
--- NOTE | 2024-05-21 09:44 | A.OFFVISCC_ITS ---
Vital Signs 05/21/24 09:44 BP 100/60 Blood Pressure Location Rt radial Position Sitting Respiration 19 Pulse 65 Pulse Source Pulse Oximeter Pulse Oximetry (%) 96 Oxygen Delivery Method Room Air Intake Visit Reasons: MAT visit Allergies No Known Allergies Allergy (Verified 08/19/23 10:11) HPI HPI MAT visit: Details: Patient presents for follow up for StUD Topomax increased last visit takes 50mg in AM and 50mg in evening Feels it helped--finds his attitude is better Cravings have decreased, including for alcohol Still engaged in groups and attends mass almost daily Labs reviewed Review of Systems Const Reports as per HPI and Reports no additional complaints Physical Exam Vital Signs: Last Vital Signs Pulse 65 05/21/24 09:44 Resp 19 05/21/24 09:44 BP 100/60 05/21/24 09:44 Pulse Ox 96 05/21/24 09:44 Oxygen Delivery Method Room Air 05/21/24 09:44 Const General: cooperative, healthy appearing and well groomed Nutritional Appearance: average body habitus Orientation/consciousness: patient oriented x3 Neuro General: patient oriented x3 Psych Appearance: well kempt Speech and movement: Normal speech and movement present Affect: normal affect Attitude: cooperative Thought process: Normal thought process present Thought content: Normal thought content present Insight: Good insight present (Psych) Judgement: Good judgement present (Psych) Assessment & Plan Assessment & Plan (1) Cocaine use disorder, moderate, in early remission, dependence: Code(s): F14.21 - Cocaine dependence, in remission Category: Medical Plan: * continue topomax 50mg BID * relapse prevention discussion * follow up 4 weeks [facility] Medical History (Updated 12/16/23 @ 17:40 by Shellie Granados CNP) Cocaine use disorder
== END 2024-05-21 10:11 | disposition home or self-care (01) ==
PROVIDERS: PCP Internal Medicine; Visit Provider Nurse Practitioner Psychiatric/Mental Health
DX: F14.21 Cocaine dependence, in remission (principal)
CPT/HCPCS: 99214

== ENCOUNTER → 2024-05-21 09:38 | Outpatient (BNVA) | payer MEDICARE, SELFPAY | PROVIDERS: PCP Internal Medicine; Visit Provider Nurse Practitioner Psychiatric/Mental Health | DX: F14.21 Cocaine dependence, in remission (principal) | CPT/HCPCS: 99212 ==

== ENCOUNTER 2024-07-14 09:37 | Outpatient (AMB) | payer MEDICARE, SELFPAY ==
--- NOTE | 2024-07-14 09:48 | MHC.AM.SUB ---
Intake Visit Reasons: MAT Office Allergies No Known Allergies Allergy (Verified 08/19/23 10:11) HPI HPI MAT Office: Details: Patient presents for StUD treatment follow up Reporting he was sick over the last month 158-133 lbs since December --feels it is due to not drinking beer Still active No issues with appetite Still attending AA meetings at least 4x/week Some cravings/thoughts of using, but feels that they pass quickly Tolerating current dose of Topomax 50mg in AM and 25mg in evening Review of Systems Const Reports as per HPI and Reports no additional complaints Physical Exam Const General: cooperative, healthy appearing and well groomed Nutritional Appearance: average body habitus Orientation/consciousness: patient oriented x3 Neuro General: patient oriented x3 Psych Appearance: well kempt Speech and movement: Normal speech and movement present Affect: normal affect Attitude: cooperative Thought process: Normal thought process present Thought content: Normal thought content present Insight: Good insight present (Psych) Judgement: Good judgement present (Psych) [facility] Medical History (Updated 12/16/23 @ 17:40 by Shellie Granados CNP) Cocaine use disorder Assessment & Plan Assessment & Plan (1) Cocaine use disorder, moderate, in early remission, dependence: Code(s): F14.21 - Cocaine dependence, in remission Category: Medical Plan: continue topomax 50mg in AM and 25mg in evening relapse prevention discussion follow up 6 weeks
--- OUTSIDE RECORDS SUMMARY | 2024-07-14 11:00 | XMS_ITS | Clinical Summary ---
Author Organization [address] [facility] Address [address] [place] [address] Phone Care Team Providers Care Lead Shipper Name Role Phone Osbaldo Tolentino MD Primary Care Provider [phone] Encounters Date Type Department Care Team Description 06/22/2024 Telephone Internal Medicine - [address] [place] [id number] Osbaldo Tolentino MD Cough 04/28/2024 10:45 AM EST Ancillary Procedure [facility] - [facility] [address] [facility] [address] [place] [phone] from Last 3 Months Surgical History Surgery Date Site/Laterality Comments HERNIA REPAIR PROCEDURE: HISTORICAL HERNIA REPAIR/ING COLONOSCOPY 12/10/07 PROCEDURE: HISTORICAL COLONOSCOPY; COMMENT: Up to cecum, adequate preparation, normal colon exam Medical History Medical History Date Comments Hyperlipidemia 05/15/2015 DX:Hyperlipidemi a Essential hypertension 05/26/2015 DX:Essent ial hypertension Hyperlipidemia 05/15/2015 DX:Hyperlipidemi a Glaucoma 06/23/2015 DX:Glaucoma Allergic rhinitis 08/29/2015 DX:Allergic rh initis Family History Medical History Relation Name Comments Brain cancer Father Cataracts Mother Glaucoma Mother Hypertension Mother Relation Name Status Comments Father brain tumour Mother old age Sister Alive 1,healthy Social History Tobacco Use Types Packs/Day Years Used Date Smoking Tobacco: Never Smokeless Tobacco: Never Alcohol Use Standard Drinks/Week Comments Not Currently 0 (1 standard drink = 0.6 oz pur e alcohol) Sex and Gender Information Value Date Recorded Sex Assigned at Not on file Legal Sex Male 9:16 PM EST Gender Identity Not on file Sexual Orientation Not on file Obstetrics History Last Filed Vital Signs Vital Sign Reading Time Taken Comments Blood Pressure 108/76 02/25/2024 1:50 PM EDT Sit ting L Arm Pulse 60 02/25/2024 1:50 PM EDT Temperature - - Respiratory Rate - - Oxygen Saturation - - Inhaled Oxygen Concentration - - Weight 67.6 kg (149 lb) 02/25/2024 1:50 PM EDT Height 170.2 cm (5' 7 ) 02/25/2024 1:50 PM EDT Body Mass Index 23.34 02/25/2024 1:50 PM EDT Plan of Treatment Upcoming Encounters Date Type Department Care Team (Late st Contact Info) Description 03/07/2025 8:30 AM EDT Ancillary Procedure [facility] - [address] [facility] [address] [place] [address] Health Maintenance Due Date Last Done Comments Hepatitis A Vaccines (1 of 2 - Risk 2-dose series) 1973 Colorectal Cancer Screening: Colonoscopy 04/20/2022 Depression Screening 04/20/2022 Falls Risk Assessment 04/20/2022 Hepatitis C Screening 04/20/2022 Medicare Annual Wellness Visit 04/20/2022 Social Influencers of Health Screening 04/20/2022 Hypertension/CHF/CAD Annual BMP Blood Test 01/27/2025 01/28/2024 Cholesterol Screening (Lipid Panel) 01/27/2029 01/28/2024 RSV Immunization Patients 60+ Years Old (1 - 1-dose 75+ series) 2029 DTaP,Tdap,and Td Vaccines (3 - Td or Tdap) 11/11/2032 11/11/2022, 03/08/2011 Pneumococcal Vaccine: 50+ Years Completed 11/11/2022 Zoster Vaccines Completed 12/09/2023, 07/21/2023 COVID-19 Vaccine Completed 04/06/2024, 08/2023, 02/17/2023, Additional history exists Influenza Vaccine Completed 04/06/2024, , 01/27/2018, Additional history exists HIB Vaccines Aged Out No longer eligi ble based on patient's age to complete this topic HPV Vaccines Aged Out No longer eligi ble based on patient's age to complete this topic Hepatitis B Vaccines Aged Out No long er eligible based on patient's age to complete this topic IPV Vaccines Aged Out No longer eligi ble based on patient's age to complete this topic MMR Vaccines Aged Out No longer eligi ble based on patient's age to complete this topic Meningococcal ACWY Vaccine Aged Out N o longer eligible based on patient's age to complete this topic Meningococcal B Vacine Aged Out No lo nger eligible based on patient's age to complete this topic RSV Immunization Patients Under 20 months Aged Out No longer eligible based on patient's age to complete this topic Varicella Vaccines Aged Out No longer eligible based on patient's age to complete this topic Medical Devices Implanted Type Area Butcher All Round Device Identifier Shelf Expiration Date Model / Serial / Lot [id number]-[id number] 2272 Assurity Mri(Tm) [id number] Implanted:08/2023 (Quantity not on file) Cardiac Pacemaker [facility] 2272 ASSURITY MRI(TM) / [id number] / Procedures Procedure Name Priority Date/Time Associated Diagnosis Comments EXTERNAL CLINICAL LAB 05/03/2024 CARDIAC DEVICE CHECK- REMOTE- MURJ Routine 04/28/2024 10:40 AM EST from Last 3 Months Results * External clinical lab (05/03/2024) Provider [facility] BLOOD ORDERABLES Fin al Result * Cardiac device check - Remote- MURJ (04/28/2024 10:40 AM EST) Date Time Interrogation Session [id number] CV DEVICE CHECK Type Interrogation Session Remote Scheduled CV DEVICE CHECK Implantable Pulse Generator Butcher All Round [employer] CV DEVICE CHECK Implantable Pulse Generator Type IPG CV DEVICE CHECK Implantable Pulse Generator Model 2272 Assurity MRI(TM) CV DEVICE CHECK Implantable Pulse Generator Serial Number [id number] CV DEVICE CHECK Implantable Pulse Generator Implant Date 20240121 CV DEVICE CHECK Battery Remaining Percentage 95.50 CV DEVICE CHECK Battery Remaining Longevity 126.0 CV DEVICE CHECK Battery Voltage 3.010 CV D EVICE CHECK Battery ANIMAL SKINNER Trigger 2.600 CV DEVICE CHECK Battery Status Middle of Service CV DEVICE CHECK Lamine Statistic RA Percent Paced 80.00 CV DEVICE CHECK Lamine Statistic RV Percent Paced 1.00 CV DEVICE CHECK Atrial Tachy Statistic AT/AF [place] Percent 0.00 CV DEVICE CHECK Lead Channel Sensing Intrinsic Amplitude 5.000 CV DEVICE CHECK Lead Channel Setting Sensing Sensitivity 0.30 CV DEVICE CHECK Lead Channel Impedance Value 480 CV DEVICE CHECK Lead Channel Pacing Threshold Amplitude 0.625 CV DEVICE CHECK Lead Channel Pacing Threshold Pulse Width 0.4 CV DEVICE CHECK Lead Channel RA Pacing Threshold Date 2024-04-23 CV DEVICE CHECK Lead Channel Setting Pacing Amplitude 1.625 CV DEVICE CHECK Lead Channel Setting Pacing Pulse Width 0.4 CV DEVICE CHECK Lead Channel Sensing Intrinsic Amplitude 9.200 CV DEVICE CHECK Lead Channel Setting Sensing Sensitivity 0.50 CV DEVICE CHECK Lead Channel Impedance Value 380 CV DEVICE CHECK Lead Channel Pacing Threshold Amplitude 0.625 CV DEVICE CHECK Lead Channel Pacing Threshold Pulse Width 0.4 CV DEVICE CHECK Lead Channel RV Pacing Threshold Date 2024-04-23 CV DEVICE CHECK Lead Channel Setting Pacing Amplitude 0.875 CV DEVICE CHECK Lead Channel Setting Pacing Pulse Width 0.4 CV DEVICE CHECK Lamine Setting Mode (NBG Code) DDDR CV DEVICE CHECK Lamine Setting Lower Rate Limit 60 CV DEVICE CHECK Lamine Setting AT Mode Switch Rate 180 CV DEVICE CHECK Lamine Setting Maximum Tracking Rate 130 CV DEVICE CHECK Lamine Setting Maximum Sensor Rate 130 CV DEVICE CHECK Lamine Setting PAV Delay 200 CV DEVICE CHECK Lamine Setting AKHIL Delay 150 CV DEVICE CHECK Date of Service 2024-05-02 CV DEVICE CHECK Anatomical Region Laterality Modality Device Interroga tion 04/23/2024 5:10 AM EST Impressions 04/28/2024 10:39 AM EST Normal Remote: No Events * Normal Device Function * Alerts or events: None * Battery: Battery is at 95.5%, 10.50 yrs * Sensing, impedance and thresholds reviewed * Programmed parameters reviewed * Presenting rhythm reviewed * Heart Rate Histograms reviewed * No significant changes noted Narrative Procedure Note Naren Mendoza MD - 04/28/2024 IMPRESSION: Normal Remote: No Events * Normal Device Function * Alerts or events: None * Battery: Battery is at 95.5%, 10.50 yrs * Sensing, impedance and thresholds reviewed * Programmed parameters reviewed * Presenting rhythm reviewed * Heart Rate Histograms reviewed * No significant changes noted Naren Mendoza MD CV IMPLANTABLE CARDIAC DEVICE PROCEDURES Final Result from Last 3 Months Insurance [employer] MED[employer] ADVANTAGE Care Teams Lead Shipper Relationship Specialty Start Date End Date Osbaldo Tolentino MD PCP - General Internal Medicine 05/02/17
--- OUTSIDE RECORDS SUMMARY | 2024-07-14 11:00 | XMS_ITS | Clinical Summary ---
Author Organization [facility] Facility Address [address] [address] Care Team Providers Care Foxpro Developer Name Role Phone Osbaldo Tolentino MD Primary Care Provider [phone] Medications lisinopril (PRINIVIL,ZESTRI L) 30 MG tablet Take 1 tablet (30 mg total) by mouth 1 (one) time each day 90 tablet 3 12/06/2021 Active Family History Medical History Relation Comments Cancer Father brain tumor Hypertension Mother Stroke Mother Relation Status Comments Father Mother Social History Tobacco Use Types Packs/Day Years Used Date Smoking Tobacco: Never Alcohol Use Standard Drinks/Week Comments Yes 0 (1 standard drink = 0.6 oz pure alcohol) Alcoholic Drinks/day: Occasional social drink Sex and Gender Information Value Date Recorded Sex Assigned at Not on file Legal Sex Male 4:52 PM EST Gender Identity Not on file Sexual Orientation Not on file Last Filed Vital Signs Vital Sign Reading Time Taken Comments Blood Pressure 108/62 01/22/2019 12:00 PM EDT Pulse 47 01/22/2019 12:00 PM EDT Temperature - - Respiratory Rate - - Oxygen Saturation 99% 01/22/2019 12:00 PM EDT Inhaled Oxygen Concentration - - Weight 69.1 kg (152 lb 5.4 oz) 01/22/2019 12:00 PM EDT Height 170.2 cm (5' 7 ) 01/22/2019 12:00 PM EDT Body Mass Index 23.86 01/22/2019 12:00 PM EDT Plan of Treatment Health Maintenance Due Date Last Done Comments Colorectal Cancer Screening: Annual FOBT 2003 Colorectal Cancer Screening: Colonoscopy 2003 Colorectal Cancer Screening: Sigmoidoscopy 2003 Pneumococcal Vaccine: 65+ Ye ars (1 of 1 - PCV) 2019 Influenza Vaccine (#1) 2024 01/21/2018 Hepatitis B Vaccine Aged Out No longe r eligible based on patient's age to complete this topic Care Teams Foxpro Developer Relationship Specialty Start Date End Date Osbaldo Tolentino MD PCP - General 05/29/20
--- OUTSIDE RECORDS SUMMARY | 2024-07-14 11:01 | XMS_ITS | Encounter Summary ---
Author Organization [facility] Address [address] [place] [address] Care Team Providers Care Knit Goods Washer Name Role Phone Osbaldo Tolentino MD Primary Care Provider [phone] Reason for Visit * Reason Onset Date Comments Cough 06/22/2024 Encounter Details Date Type Department Care Team (Late st Contact Info) Description 06/22/2024 Telephone Internal Medicine - [address] [address] Osbaldo Tolentino MD [address] [place] [phone] Cough Social History Tobacco Use Types Packs/Day Years Used Date Smoking Tobacco: Never Smokeless Tobacco: Never Alcohol Use Standard Drinks/Week Comments Not Currently 0 (1 standard drink = 0.6 oz pur e alcohol) Sex and Gender Information Value Date Recorded Sex Assigned at Not on file Legal Sex Male 9:16 PM EST Gender Identity Not on file Sexual Orientation Not on file documented as of this encounter Progress Notes * Torie Olsen RN - 06/22/2024 1:39 PM EST Spoke with the patient stated he had a cold about a week ago thought it was getting better then hiswife started with it he has had temps of 100. Advised to go to an UC to be evaluated . There are noappt in the office or that this nurse can schedule at [facility]. He will go to another * Shankar Loyd - 06/22/2024 9:49 AM EST Patient call requires triage: Symptoms patient is presenting: cough, chest discomfort How long has patient had these symptoms?: 1 week For ALL patients calling to schedule any appointment (routine, sick visit, follow up, consult, etc.) in the outpatient setting please ask the following questions: Do you have fever of higher than 101, sore throat with difficulty swallowing or severe shortness ofbreath? no If YES to any of these above symptoms, send a message to triage and do not book. Red dot. If no, an audio or video visit should be booked. Have you had close contact with someone with Coronavirus in the last 14 days? no Have you traveled abroad? no Have you traveled recently to another state outside of [place], [place], [place], [place], [place], [place], [place]? no o If yes, did you quarantine for 14 days or have a negative covid test? no If yes to any of the above, patient is not to be scheduled in office until after 14 day quarantine or negative covid test. If pain or injury related was it due to an accident at work or from a motor vehicle accident? If yes, date of accident/Injury: No If yes, gather 3rd alliance party insurance information Third Libertarian Information: PCP: Osbaldo Tolentino MD Payor: [employer] [facility] [place] MED[employer] ADVANT[employer] / Plan: [employer] [facility] [place] MED[employer] ADVANTAGE / Product Type: *No Product type* / documented in this encounter Plan of Treatment Upcoming Encounters Date Type Department Care Team (Late st Contact Info) Description 03/07/2025 8:30 AM EDT Ancillary Procedure [facility] - [facility] [address] [facility] [address] [place] [address] documented as of this encounter Visit Diagnoses Not on filedocumented in this encounter Care Teams Knit Goods Washer Relationship Specialty Start Date End Date Osbaldo Tolentino MD PCP - General Internal Medicine 05/02/17 documented as of this encounter
--- OUTSIDE RECORDS SUMMARY | 2024-07-14 11:01 | XMS_ITS ---
Author Organization [facility] Address [address] [place] [address] Care Team Providers Care Brake Operator Name Role Phone Donn Hollis Unavailable [phone] ALLERGIES, ADVERSE REACTIONS, ALERTS None MEDICATIONS Medication Code Code System Start Date Stop Date Route Dosage Directions Fill Instructions atorvastatin calcium RxNorm 024 azithromycin 983006 RxNorm 5 oral amlodipine besylate RxNorm 4 1 topiramate RxNorm 01/01/20 24 2 benzonatate 500255 RxNorm 5 oral 1 gabapentin RxNorm 11/28/19 24 folic acid RxNorm 4 1 albuterol sulfate 0155693 RxNorm 5 inhalation 1 timolol maleate RxNorm 12/12/19 24 PROBLEMS Problem Name Code Code System Start Date End Date Stat us Essential (primary) hypertension 83802249 [facility] Active Other hyperlipidemia 2686526 [facility] Active Influenza due to other ident ified influenza virus with other respiratory manifestations 03912855 [facility] 06/23/2024 A ctive Acute bronchitis, unspecified 70628394 [facility] 06/23/2024 Active ENCOUNTERS Encounter Diagnosis Code Code System Date Stat us Influenza due to other ident ified influenza virus with other respiratory manifestations 61761935 [facility] 2024 Active Acute bronchitis, unspecified 68657358 [facility] 06/23/19 25 Active IMMUNIZATIONS * None VITAL SIGNS Code Code System Vitals Name Date Value and Un its 8462-4 [facility] Blood Pressure-Diastolic 06/23/2024 76 mmHg 8480-6 [facility] Blood Pressure-Systolic 06/23/2024 1 15 mmHg 8867-4 [facility] Heart Rate 06/23/2024 69 /min 9279-1 inc Respiratory Rate 06/23/2024 16 /min 8310-5 inc Body Temperature 06/23/2024 96.0 F 06755-1 [facility] Oxygen Saturation 06/23/2024 99 % SOCIAL HISTORY * None PROCEDURES * None RESULTS Test Code Code System Description Result Value Date Ref erence Range Loinc SARS-CoV-2 Not Detected 06/23/2024 Not De tected [facility]inc Flu A Detected 06/23/2024 Not Detect ed Loinc Flu B Not Detected 06/23/2024 Not Det ected [facility] RSV Not Detected 06/23/2024 Not Det ected MEDICAL EQUIPMENT * Patient has no history of implantable devices ASSESSMENT * None TREATMENT PLAN Type Description Date MEDICATION Take 90 mcg/actuation HFA Aeroso l Inhaler 06/23/2024 MEDICATION Take 100 mg capsule 06/23/2024 MEDICATION Take 250 mg tablet 06/23/2024 ORDERS You were seen in the clinic for your fever, cough, congestion, and muscle aches. Your exam was reassuring.Your flu swab was positive. Rest, stay well hydrated.Take Tylenol and/or Motrin as needed for fever or muscle aches.Please be re-evaluated if you are not starting to feel better or if still having fevers after 5-7 days of illnessYou should avoid crowds, public places, school, hotels, elderly, infants, or people with compromisedimmune systems until 24 hours after your fevers stop and your symptoms are improved.Go to the ED if you develop a severe headache, neck stiffness, intractable vomiting, trouble breathing,shortness of breath, or any other new, concerning symptoms. 06/23/2024 APPOINTMENT If not feeling rivera r in 3 day(s), please see your primary care physician. If you do not have a primary care physician, please return to this clinic. 06/23/2024 Labs Tests Test Name Code Code System Date [place] (CFRA) SARS-CoV-2, Flu A/B, RSV Multiplex Assay, Amplified Probe Molecular RT-PCR / NAAT [id number] [facility] 06/23/2024 GOALS * None HEALTH CONCERNS * No Health Concerns FUNCTIONAL AND COGNITIVE STATUS * None CONSULTATION NOTES * None DISCHARGE SUMMARY NOTES * None HISTORY AND PHYSICAL NOTES * Patient: HARRIS NUGENT, Sex: M (ID# [id number]) Date of : 1955 (69 years) Visit on 06/23/2024 (Log# [id number]) Historian: Self History of Present Illness: pt presents to for cough. pt states it began last week friday or friday with fevers and chills.improved some but since this weekend worsening cough. worse when he lays down. he did have aches and chills. no difficulty breathing. no relief with otc meds. no asthma or copd history Complaint: The patient presents with a chief complaint of cough of the chest since Jun 18, 2024. Context - Initial History: The patient reports it was not the result of an injury. The patient reports that the onset was: ASSOCIATED WITH SHORTNESS OF BREATH; not associated with chest pain; not associated with leg swelling; not associated with calf pain; ASSOCIATED WITH FEVER; ASSOCIATED WITH CONGESTION. The patient also reports chills, congestion, fever, headache, nasal discharge, shortness ofbreath, nasal congestion, and aches/pains as abnormal symptoms related to the complaint. Review of Systems: The patient complains of the following recent symptoms: Constitutional: fever chills fatigue Neurological: headache ENT and Mouth: nasal congestion nasal discharge Respiratory: congestion shortness of breath cough: See HPI Musculoskeletal: aches/pains Allergies: patient specifies no known allergies Medications: amlodipine besylate: amlodipine besylate 5 mg tablet; TAKE 1 TABLET TAKE 1 TABLET BY MOUTH ONCE DAILY; Total Qty: 90 (ninety) Each; 0 refill(s); SHEELA; atorvastatin calcium: atorvastatin calcium 40 mg tablet; Total Qty: 90 (ninety) Tablet; 0 refill(s); SHEELA; folic acid: folic acid 1 mg tablet; TAKE 1 TABLET TAKE 1 TABLET BY MOUTH ONCE DAILY; Total Qty: 90 (ninety) Each; 0 refill(s); SHEELA; folic acid: folic acid 1 mg tablet; TAKE 1 TABLET TAKE 1 TABLET BY MOUTH ONCE DAILY; Total Qty: 90 (ninety) Each; 0 refill(s); SHEELA; gabapentin: gabapentin 300 mg capsule; Total Qty: 90 (ninety) Capsule; 0 refill(s); SHEELA; timolol maleate: timolol maleate 0.5 % drops; Total Qty: 5 (five) Milliliter; 0 refill(s); SHEELA; topiramate: topiramate 25 mg Capsule, Sprinkle; TAKE 2 CAPSULES TAKE 2 CAPSULES BY MOUTH EVERY MORNING AND 1 CAPSULE BY MOUTH EVERY EVENING; Total Qty: 270 (two hundred and seventy) Each; 0 refill(s); SHEELA; Problem List: Essential (primary) hypertension (status Active) Other hyperlipidemia (status Active) Surgeries: Heart/Lung surgery: other heart/lung surgery, specified as pacemarker. Vitals: 08:48 AM (06/23/2024)Temperature: 96.0 ?F, Pulse: 69 BPM, BP: 115/76, Respirations: 16/min, O2 Saturation: 99%, O2 Delivery: RAFirst entered 06/23/2024 08:48 by Singh Fischer Physical Exam: The following exam elements were documented to be normal: Cardiovascular: S1, S2 noted, normal rate, regular rhythm, and no murmurs, rubs, gallop, or extra heart sounds. ENT: grossly visible nasal discharge absent. ENT: tympanic membranes normal bilaterally. ENT: oropharynx and tonsils without swelling, erythema, lesion, exudate. Eyes: normal conjunctiva bilaterally. General: well developed, well nourished, and in no apparent distress. Lymph: no cervical lymphadenopathy. Psychiatric: oriented and alert. Respiratory: breathing effort and rate are grossly normal, speaks in full sentences. Respiratory: no increased work of breathing. Respiratory: lungs clear to auscultation bilaterally with good air movement, no stridor, crackles, rubs, or wheezing. Skin: no visible rash/lesions. Labs: [place] (CFRA) SARS-CoV-2, Flu A/B, RSV Multiplex Assay, Amplified Probe Molecular RT-PCR / NAAT Code(s): 79232 Results SARS-CoV-2: Not Detected Flu A: Detected (Alpha Abnormal) Flu B: Not Detected RSV: Not Detected [facility] [place] 3 ([id number]), [facility] [id number], Expiry: Operator: [email or web address] Order entered 06/23/2024 08:48 by Singh Fischer Under supervision of ordering provider JULIO HEATH Completed 06/23/2024 08:48 by iSngh Fischer Reviewed 06/23/2024 09:15 by Donn Hollis Diagnoses: Influenza due to other identified influenza virus with other respiratory manifestations (J10.1) Acute bronchitis, unspecified (J20.9) Medication Orders: Prescribed: albuterol sulfate 90 mcg/actuation HFA Aerosol Inhaler; Take 1 puff (inhalation) 4 times per day for 1 Weeks; Total Qty: 1 (one) Unspecified; 0 refill(s); Substitutions allowed; Earliest Fill Date: 06/23/2024ePrescribed at 9:22 AM on 06/23/2024 by MC Heathrescription sent to [facility] (P: [phone] F: [phone]) [address] [place] [address], [address] Prescribed: benzonatate 100 mg capsule; Take 1 Capsule (oral) 3 times per day (PRN - Cough); Total Qty: 21 (twenty-one) Capsule; 0 refill(s); Substitutions allowed; Earliest Fill Date: 06/23/2024ePrescribed at 9:22 AM on 06/23/2024 by MC HeathAkonni Biosystemscription sent to [facility] 1966 (P:[phone] F: [phone]) [address] [place] [address], [address] Prescribed: azithromycin 250 mg tablet; Take 2 Tablet (oral) daily for 1 Days; then take 1 Tablet daily for 4 Days; Total Qty: 6 (six) Tablet; 0 refill(s); Substitutions allowed; Earliest Fill Date: 06/23/2024ePrescribed at 9:22 AM on 06/23/2024 by MC HeathAkonni Biosystemscription sent to [facility] 1966 (P: [phone] F: [phone]) [address] [place] [address], [address] Discharge Instructions: Acute Bronchitis, Adult, Xvba-cy-Pxhl Influenza, Adult Plan: If not feeling better in 3 day(s), please see your primary care physician. If you do not have a primary care physician, please return to this clinic. You were seen in the clinic for your fever, cough, congestion, and muscle aches. Your exam was reassuring. Your flu swab was positive. Rest, stay well hydrated. Take Tylenol and/or Motrin as needed for fever or muscle aches. Please be re-evaluated if you are not starting to feel better or if still having fevers after 5-7 days of illness You should avoid crowds, public places, school, hotels, elderly, infants, or people with compromised immune systems until 24 hours after your fevers stop and your symptoms are improved. Go to the ED if you develop a severe headache, neck stiffness, intractable vomiting, trouble breathing, shortness of breath, or any other new, concerning symptoms. Visit discharged at 06/23/2024 9:22:52 AM by Donn Hollis PA-C Signed electronically by Donn Hollis PA-C on 06/23/2024 9:22:52 AM IMAGING NOTES * None LABORATORY REPORT NARRATIVE NOTES * None PATHOLOGY REPORT NARRATIVE NOTES * None PROGRESS NOTES * None
== END 2024-07-14 10:25 | disposition home or self-care (01) ==
PROVIDERS: PCP Internal Medicine; Visit Provider Nurse Practitioner Psychiatric/Mental Health
DX: F14.21 Cocaine dependence, in remission (principal)
CPT/HCPCS: 99213

== ENCOUNTER → 2024-07-14 09:37 | Outpatient (BNVA) | payer MEDICARE, SELFPAY | PROVIDERS: PCP Internal Medicine; Visit Provider Nurse Practitioner Psychiatric/Mental Health | DX: F14.21 Cocaine dependence, in remission (principal) | CPT/HCPCS: 99212 ==

== ENCOUNTER 2024-09-10 10:37 | Outpatient (AMB) | payer MEDICARE, SELFPAY ==
[2024-09-10 10:49] VITALS: BP 128/78; PULSE 60; O2SAT 98; BMI 22.7
--- NOTE | 2024-09-10 10:49 | A.OFFVIS_ITS ---
Vital Signs 09/10/24 10:49 Height 5 ft 7 in Weight 145 lb BMI 22.7 BP 128/78 Pulse 60 Pulse Oximetry (%) 98 Intake Visit Reasons: MAT Allergies No Known Allergies Allergy (Verified 09/10/24 10:50) HPI HPI MAT: Details: He has been taking Topamax 50 mg every am and 25 mg pm. He has been using cocaine just as much and not helping. He is interested in using Welbutrin since some depression and it can help cravings for cocaine. [facility] Medical History Cocaine use disorder Review of Systems Const All systems reviewed & are unremarkable except as noted in HPI and below Physical Exam Vital Signs: Last Vital Signs Pulse 60 09/10/24 10:49 BP 128/78 09/10/24 10:49 Pulse Ox 98 09/10/24 10:49 BMI result Body Mass Index 22.7 Const General: cooperative Results AMB 14 Panel Urine Drug Screen Urine Marijuana (THC) Negative Last Edit by Marilu Leung CMA on 5 11:09 Urine Cocaine Positive Last Edit by Marilu Leung CMA on 09/10/24 11:09 Urine Morphine Negative Last Edit by Marilu Leung CMA on 09/10/24 11:09 Urine Methamphetamine Negative Last Edit by Marilu Leung CMA on 5 11:09 Urine Amphetamine Negative Last Edit by Marilu Leung CMA on 09/10/24 11 :09 Urine Benzodiazepine Negative Last Edit by Marilu Leung CMA on 09/10/24 11:09 Urine Barbiturates Negative Last Edit by Marilu Leung CMA on 09/10/24 11:09 Urine Methadone Negative Last Edit by Marilu Leung CMA on 09/10/24 11:0 9 Urine Buprenorphine Negative Last Edit by Marilu Leung CMA on 09/10/24 11:09 Urine Tricyclic Antidepressant Negative Last Edit by Marilu Leung CMA o n 09/10/24 11:09 Urine MDMA Negative Last Edit by Marilu Leung CMA on 09/10/24 11:09 Urine Oxycodone Negative Last Edit by Marilu Leung CMA on 09/10/24 11:0 9 Urine Phencyclidine Negative Last Edit by Marilu Leung CMA on 09/10/24 11: 09 Urine Propoxyphene Negative Last Edit by Marilu Leung CMA on 09/10/24 11:09 Results Reviewed Results Reviewed: Laboratory Last Values POC Urine Buprenorphine Negative 09/10/24 11:07 POC Urine Morphine Negative 09/10/24 11:07 POC Urine Oxycodone Negative 09/10/24 11:07 POC Urine Methadone Negative 09/10/24 11:07 POC Urine Propoxyphene Negative 09/10/24 11:07 POC Urine Barbiturates Negative 09/10/24 11:07 POC U Tricyclic Antidpr Negative 09/10/24 11:07 POC Urine PCP Negative 09/10/24 11:07 POC Ur Amphetamines Negative 09/10/24 11:07 POC Ur Methamphetamine Negative 09/10/24 11:07 POC Urine MDMA Negative 09/10/24 11:07 POC Ur Benzodiazepine Negative 09/10/24 11:07 POC Urine Cocaine Positive 09/10/24 11:07 POC Ur Marijuana (THC) Negative 09/10/24 11:07 Assessment & Plan Assessment & Plan (1) Cocaine use disorder, moderate, in early remission, dependence: Comment: He has been using cocaine only, no smoking Topamax isnt working and can have some toxicity Stop Topamax,wean down last month. He denies HIV risk and had bloodwork done 04/2024 and all else negative including hepatitis C Welbutrin XL. See in two months. Code(s): F14.21 - Cocaine dependence, in remission Category: Medical Plan: na Orders: Orders AMB 14 Panel Urine Drug Screen Today Z51.81 - Encounter for therapeutic drug level monitoring Medications: New bupropion HCl XL (Wellbutrin XL) 150 mg PO QAM 30 days 30 tabs 1RF Discontinued topiramate Discontinued Reason: None 25 mg orally take 2 caps in the morning and one cap in the evening; 90 caps 2RF Coding Level of Care Code Est Pt Level 3 (79292) Diagnoses Cocaine use disorder, moderate, in early remission, dependence F14.21
--- OUTSIDE RECORDS SUMMARY | 2024-09-10 11:17 | XMS_ITS | Clinical Summary ---
Author Organization [facility] Facility Address [address] [address] Care Team Providers Care Pay Per Click Strategist Name Role Phone Osbaldo Tolentino MD Primary Care Provider [phone] Medications lisinopril (PRINIVIL,ZESTRI L) 30 MG tablet [...] Colorectal Cancer Screening: Sigmoidoscopy 2003 Pneumococcal Vaccine: 50+ Ye ars (1 of 1 - PCV) 2004 Influenza Vaccine (Season Ended) 2025 01/22/20 18 Hepatitis B Vaccine Aged Out No longe r eligible based on patient's age to complete this topic Care Teams Pay Per Click Strategist Relationship Specialty Start Date End Date Osbaldo Tolentino MD PCP - General 05/29/20
--- OUTSIDE RECORDS SUMMARY | 2024-09-10 11:17 | XMS_ITS | Clinical Summary ---
Author Organization [address] [place] [address] [place] [phone] Phone Care Team Providers Care Dish Washer Name Role Phone Osbaldo Tolentino MD Primary Care Provider [phone] Allergies No known active allergies Medications folic acid (FOLVITE) 1 mg tabletIndication s:Nutritional anemia, unspecified Take 1 tablet by mouth once daily 90 tablet Active folic acid (FOLVITE) 1 mg tablet Take 1 tablet (1 mg total) by mouth 1 (one) time each day. Active topiramate (TOPAMAX) 25 mg tablet Take 2 tablets (50 mg total) by mouth 1 (one) time each day. In a.m. Active topiramate (TOPAMAX) 25 mg tablet Take 1 tablet (25 mg total) by mouth at bedtime. Active atorvastatin (LIPITOR) 40 mg tablet Take 1 tablet (40 mg total) by mouth 1 (one) time each day. Active B complex tablet Take 1 tablet by mouth 1 (one) time each day. Active timoloL (BETIMOL) 0.5 % ophthalmic solution Administer 1 drop into both eyes 2 (two) times a day. Active latanoprost (XALATAN) 0.005 % ophthalmic solution Administer 1 drop into both eyes at bedtime. Active gabapentin (NEURONTIN) 300 mg capsule Take 1 capsule (300 mg total) by mouth 3 (three) times a day. Active Encounters Date Type Department Care Team Description 08/27/2024 9:00 AM EDT Clinical Support Internal Medicine - [facility] [address] [place] [id number] Routine general medical examination at a health care facility (Primary Dx); Encounter for subsequent annual wellness visit (AWV) in Medicare patient 08/24/2024 Telephone Internal Medicine - [facility] [address] [facility] [place] [phone] Romina Agarwal MA Medicare Annual Wellness Visit Subsequent (AWV DUE 2024) 08/02/2024 9:35 AM EDT Ancillary Procedure [facility] [address] [facility] [address] [place] [address] 06/22/2024 Telephone Internal Medicine - [facility] [address] [facility] [place] [address] Osbaldo Tolentino MD Cough from Last 3 Months Surgical History Surgery Date Site/Laterality Comments HERNIA REPAIR PROCEDURE: HISTORICAL HERNIA REPAIR/ING COLONOSCOPY 12/10/07 PROCEDURE: HISTORICAL COLONOSCOPY; COMMENT: Up to cecum, adequate preparation, normal colon exam PACEMAKER IMPLANT 01/18/2024 - 02/16/2024 N/A TONSILLECTOMY Medical History Medical History Date Comments Hyperlipidemia 05/15/2015 DX:Hyperlipidemi a Essential hypertension 05/26/2015 DX:Essent ial hypertension Hyperlipidemia 05/15/2015 DX:Hyperlipidemi a Glaucoma 06/23/2015 DX:Glaucoma Allergic rhinitis 08/29/2015 DX:Allergic rh initis Neuropathy of hand, unspecified laterality bilateral Family History Medical History Relation Name Comments Brain cancer Father Cataracts Mother Glaucoma Mother Hypertension Mother No Known Problems Son Relation Name Status Comments Father brain tumour Mother old age Sister Alive 1,healthy Son Alive x2 Social History Tobacco Use Types Packs/Day Years Used Date Smoking Tobacco: Never Smokeless Tobacco: Never Alcohol Use Standard Drinks/Week Comments Not Currently 0 (1 standard drink = 0.6 oz pur e alcohol) Housing Instability Answer Date Recorde d Are you worried that in the next 2 months you may not have stable housing? No 08/27/2024 Food Access & Nutrition Answer Date Rec orded Do you have access to a vari ety of food including fruits and vegetables? Yes 08/27/2024 Health Literacy Answer Date Recorded How often do you need to hav e someone help you when you read instructions, pamphlets, or other written material from your doctor or pharmacy? Never 08/27/2024 Caregiver: How often do you need to have someone help you when you read instructions, pamphlets, or other written material from your doctor or pharmacy? Not on file 08/27/2024 Financial Risk Answer Date Recorded How hard is it for you to pa y for the very basics like food, housing, medical care, and air conditioning / heating? Not very hard 08/27/2024 Transportation Answer Date Recorded Has the lack of transportati on kept you from meetings, work, or from getting things needed for daily living? No Has the lack of transportati on kept you from medical appointments or from getting medications? No 08/27/2024 Social Isolation Answer Date Recorded How often do you feel lonely or isolated from th ose around you? Never 08/27/2024 Food Risk Answer Date Recorded Within the past 12 months we worried whether our food would run out before we got money to buy more. Never true 08/27/2024 Within the past 12 months th e food we bought just didn't last and we didn't have money to get more. Never true 08/27/2024 Dependent Care Answer Date Recorded Do you need help finding or paying for care for your loved ones. For example, child protective services specialist or elderly care for an older adult? No 08/27/2024 Education Answer Date Recorded Do you think completing more education or training, like finishing a GED, going to college, or learning a trade, would be helpful for you? No 08/27/2024 Employment and Income Answer Date Recor ded During the last four weeks, have you been actively looking for work? No 08/27/2024 Living Situation Answer Date Recorded What is your living situation? 0 08/27/2024 Sex and Gender Information Value Date Recorded [...] Care Team (Late st Contact Info) Description 09/17/2024 8:45 AM EDT Office Visit Internal Medicine - [facility] [address] [place] [phone] Nick Kumar NP [address] [place] [address] 03/07/2025 8:30 AM EDT Ancillary Procedure [facility] [address] [facility] [address] [place] [address] Health Maintenance Due Date Last Done Comments Hepatitis A Vaccines (1 of 2 - Risk 2-dose series) 1973 Colorectal Cancer Screening: Colonoscopy 04/20/2022 Hepatitis C Screening 04/20/2022 COVID-19 Vaccine ( season) 2024 04/06/2024, 07/21/2023, 02/17/2023, Additional history exists Hypertension/CHF/CAD Annual BMP Blood Test 01/27/2025 01/28/2024 Depression Screening 08/27/2025 08/27/2024 Falls Risk Assessment 08/27/2025 08/27/2024 Medicare Annual Wellness Visit 08/27/2025 08/27/2024 Social Influencers of Health Screening 08/27/2025 08/27/2024 Cholesterol Screening (Lipid Panel) 01/27/2029 01/28/2024 RSV Immunization Adult Patients (1 - 1-dose 75+ series) 2029 DTaP,Tdap,and Td Vaccines (3 - Td or Tdap) 11/11/2032 11/11/2022, 03/08/2011 Pneumococcal Vaccine: 50+ Years Completed 11/11/2022 Zoster Vaccines Completed 12/09/2023, 07/21/2023 Influenza Vaccine Completed 04/06/2024, , 01/27/2018, Additional [...] age to complete this topic Meningococcal B Vaccine Aged Out No l onger eligible based on patient's age to complete this topic RSV Immunization Patients Under 20 months Aged Out No longer eligible based on patient's age to complete this topic Varicella Vaccines Aged Out No longer eligible based on patient's age to complete this topic Medical Devices Implanted Type Area Program Writer Device Identifier Shelf Expiration Date Model / Serial / Lot Blanka 2272 Assurity Mri(Tm) [id number] Implanted:08/2023 (Quantity not on file) Cardiac Pacemaker [employer]- [employer] 2272 ASSURITY MRI(TM) / [id number] / Procedures Procedure Name Priority Date/Time Associated Diagnosis Comments CARDIAC DEVICE CHECK- REMOTE- MURJ Routine 08/02/2024 9:30 AM EDT from Last 3 Months Results * Cardiac device check - Remote- MURJ (08/02/2024 9:30 AM EDT) Date Time Interrogation Session [id number] CV DEVICE CHECK Type Interrogation Session Remote Scheduled CV DEVICE CHECK Implantable Pulse Generator Program Writer [employer] CV DEVICE CHECK Implantable Pulse Generator Type IPG CV DEVICE CHECK Implantable Pulse Generator Model 2272 Assurity MRI(TM) CV DEVICE CHECK Implantable Pulse Generator Serial Number [id number] CV DEVICE CHECK Implantable Pulse Generator Implant Date 20240121 CV DEVICE CHECK Battery Remaining Percentage 95.50 CV DEVICE CHECK Battery Remaining Longevity 126.0 CV DEVICE CHECK Battery Voltage 3.010 CV D EVICE CHECK Battery CRIMINOLOGY PROFESSOR Trigger 2.600 CV DEVICE CHECK Battery Status Middle of Service CV DEVICE CHECK Lamine Statistic RA Percent Paced 74.00 CV DEVICE CHECK Lamine Statistic RV Percent Paced 1.00 CV DEVICE CHECK Atrial Tachy Statistic AT/AF [place] Percent 0.00 CV DEVICE CHECK Lead Channel Sensing Intrinsic Amplitude 5.000 CV DEVICE CHECK Lead Channel Setting Sensing Sensitivity 0.30 CV DEVICE CHECK Lead Channel Impedance Value 540 CV DEVICE CHECK Lead Channel Pacing Threshold Amplitude 0.750 CV DEVICE CHECK Lead Channel Pacing Threshold Pulse Width 0.4 CV DEVICE CHECK Lead Channel RA Pacing Threshold Date 2024-07-22 CV DEVICE CHECK Lead Channel Setting Pacing Amplitude 1.750 CV DEVICE CHECK Lead Channel Setting Pacing Pulse Width 0.4 CV DEVICE CHECK Lead Channel Sensing Intrinsic Amplitude 12.000 CV DEVICE CHECK Lead Channel Setting Sensing Sensitivity 0.50 CV DEVICE CHECK Lead Channel Impedance Value 440 CV DEVICE CHECK Lead Channel Pacing Threshold Amplitude 0.625 CV DEVICE CHECK Lead Channel Pacing Threshold Pulse Width 0.4 CV DEVICE CHECK Lead Channel RV Pacing Threshold Date 2024-07-22 CV DEVICE CHECK Lead Channel Setting Pacing [...] 150 CV DEVICE CHECK Date of Service 2024-08-02 CV DEVICE CHECK Anatomical Region Laterality Modality Device Interroga tion 07/22/2024 2:00 AM EST Impressions 08/02/2024 9:22 AM EDT Normal Remote: No Events * Normal Device Function * Alerts or events: None * Battery: Battery is at 95.5%, 10.50 yrs * Sensing, impedance and thresholds reviewed * Programmed parameters reviewed * Presenting rhythm reviewed * Heart Rate Histograms reviewed * No significant changes noted Narrative Procedure Note Naren Mendoza MD - 08/02/2024 IMPRESSION: Normal Remote: No Events * Normal [...] [employer] [place] [employer] ADVANTAGE Care Teams Dish Washer Relationship Specialty Start Date End Date Osbaldo Tolentino MD [address] [place] [id number] PCP - General Internal Medicine 05/02/17
== END 2024-09-10 11:19 | disposition home or self-care (01) ==
LOC: HO.HCC 10:38
PROVIDERS: PCP Internal Medicine; Visit Provider Internal Medicine
DX: Z51.81 Encounter for therapeutic drug level monitoring (principal); F14.21 Cocaine dependence, in remission
CPT/HCPCS: 99213

== ENCOUNTER → 2024-09-10 10:37 | Outpatient (BNVA) | payer MEDICARE, SELFPAY | PROVIDERS: PCP Internal Medicine; Visit Provider Internal Medicine | DX: F14.21 Cocaine dependence, in remission (principal); Z51.81 Encounter for therapeutic drug level monitoring | CPT/HCPCS: 80307; 99212 ==